=== PATIENT | female | born 1995 | race Hispanic/Latino ===

== ENCOUNTER 2024-05-26 19:01 | Emergency (ER) | payer OTHER ==
[~2024-05-26] VITALS: Ht 162.6 cm; Wt 104.3 kg
[2024-05-26 19:20] VITALS: PULSE 84; RESP 18; TEMP 96.6
[2024-05-26] MEDS: ALBUTEROL SULF 0.083% NEB SOLN 3 ML NEB NEB STA (20:27)
[2024-05-26 21:35] VITALS: BP 117/68; PULSE 80; RESP 18; TEMP 97; O2SAT 99
== END 2024-05-26 21:35 | disposition other institution (70) ==
LOC: FSED 19:49
DX: O26.893 Other specified pregnancy related conditions, third trimester (principal); R06.02 Shortness of breath; R05.1 Acute cough; Z11.52 Encounter for screening for COVID-19
CPT/HCPCS: 0223U; 80048; 81003; 83518; 85025; 87400; 99284